=== PATIENT | female | born 1955 | race Caucasian/White ===

== ENCOUNTER 2022-07-13 15:56 | Emergency (ER) | payer MEDICARE, MEDICAID ==
[~2022-07-13] VITALS: Ht 162.6 cm; Wt 77.0 kg
[2022-07-13 16:05] VITALS: BP 164/96
[2022-07-13] MEDS ORDERED: IBUP-2029 MT (19:45)
[2022-07-13] MEDS ORDERED: METH-653 MT (19:45)
== END 2022-07-13 21:15 | disposition home or self-care (01) ==
LOC: ER 16:03
DX: M54.9 Dorsalgia, unspecified (principal); I10 Essential (primary) hypertension; V49.9XXA Car occupant (driver) (passenger) injured in unspecified traffic accident, initial encounter; Y93.89 Activity, other specified; Y92.89 Other specified places as the place of occurrence of the external cause; Y99.8 Other external cause status
CPT/HCPCS: 71045; 93005; 99283

== ENCOUNTER 2022-10-17 02:31 | Emergency (ER) | payer MEDICARE, MEDICAID ==
[~2022-10-17] VITALS: Ht 160 cm; Wt 73.0 kg
[~2022-10-17 02:31] MED LIST: IBUP-2029 MT; METH-653 MT
[2022-10-17] MEDS ORDERED: MORPHINE SULFATE 4 MG/ML CPJ (NOT FOR IM USE) IV STA (03:23)
[2022-10-17] MEDS ORDERED: ONDANSETRON HCL 4MG/2ML INJ IV STA (03:23)
[2022-10-17] MEDS ORDERED: FAMOTIDINE 20MG/2ML VIAL IV STA (03:23)
[2022-10-17 04:30] LABS: BASOPHILS % 0.3 % (0.0-2.0); EOSINOPHILS % 2.6 % (0.0-5.0); HEMATOCRIT. 30.8 % (36.0-48.0); LYMPHOCYTES % 11.9 % (20.0-50.0); MEAN CORPUSCULAR HEMOGLOBIN 33.7 pg (28.0-32.0); MEAN CORPUSCULAR VOLUME 94.1 fL (81.0-99.0); MEAN PLATELET VOLUME 8.8 fl (7.4-10.4); MONOCYTES % 7.4 % (2.0-8.0); NEUTROPHILS % 77.8 % (40.0-76.0); PLATELET 154 x1000/uL (130-400); RED BLOOD CELL COUNT 3.27 mill/uL (4.2-5.4)
[2022-10-17] MEDS ORDERED: MAGNESIUM/ALUMINUM HYDROXIDE/SIMETHICONE 30ML UDC PO STA (04:33)
[2022-10-17] MEDS ORDERED: VISCOUS LIDOCAINE 2% 15 ML UDC PO STA (04:33)
[2022-10-17 04:39] LABS: CHLORIDE 110 mEq/L (98-107)
[2022-10-17 04:45] LABS: CLARITY URINE CLEAR (CLEAR); COLOR URINE YELLOW (YELLOW); KETONES URINE NEGATIVE (NEGATIVE); LEUKOCYTE ESTERASE URINE NEGATIVE (NEGATIVE); NITRITE URINE NEGATIVE (NEGATIVE); OCCULT BLOOD URINE NEGATIVE (NEGATIVE); PROTEIN URINE NEGATIVE (NEGATIVE); SPECIFIC GRAVITY URINE 1.008 (1.005-1.030); UROBILINOGEN URINE 0.2 E.U./dL (0.2-1.0)
[2022-10-17] MEDS ORDERED: ONDA4TAB50 MT (05:02)
[2022-10-17] MEDS ORDERED: PROT40 MT (05:02)
[2022-10-17 06:00] VITALS: BP 143/74
== END 2022-10-17 06:37 | disposition home or self-care (01) ==
LOC: ER 02:31
DX: R10.13 Epigastric pain (principal); R11.2 Nausea with vomiting, unspecified; R19.7 Diarrhea, unspecified; R07.9 Chest pain, unspecified; F41.9 Anxiety disorder, unspecified; J45.909 Unspecified asthma, uncomplicated; I10 Essential (primary) hypertension
CPT/HCPCS: 36415; 71045; 76705; 80053; 81003; 83605; 83690; 84484; 85025; 96374; 96375; 99285; J2270; J2405; J3490

== ENCOUNTER 2025-04-01 14:25 | Emergency (ER) | payer MEDICARE, OTHER ==
[~2025-04-01] VITALS: Ht 160 cm; Wt 77.0 kg
[~2025-04-01 14:25] MED LIST changes: +AMLO5TAB88 PO; +GABA-290 PO; +IBUP-1455 MT; -IBUP-2029 MT; +ONDA4TAB50 MT; +PROT40 MT
[2025-04-01 14:26] VITALS: O2SAT 96
[2025-04-01 15:05] LABS: BASOPHILS % 0.5 % (0.0-2.0); EOSINOPHILS % 1.3 % (0.0-5.0); HEMATOCRIT. 39.1 % (36.0-48.0); HEMOGLOBIN. 13.3 g/dL (12.0-16.0); LYMPHOCYTES % 24.1 % (20.0-50.0); MEAN PLATELET VOLUME 8.6 fl (7.4-10.4); MONOCYTES % 4.6 % (2.0-8.0); NEUTROPHILS % 69.5 % (40.0-76.0); PLATELET 186 x1000/uL (130-400); RED BLOOD CELL COUNT 4.13 mill/uL (4.2-5.4); RED CELL DISTRIBUTION WIDTH 13.5 % (11.6-14.6)
[2025-04-01 15:16] LABS: INR 1.0
[2025-04-01 15:20] LABS: UREA NITROGEN BLOOD 14 mg/dL (9-23)
[2025-04-01 15:21] LABS: TROPONIN I HIGH SENSITIVITY < 4 ng/L (3.0-34)
[2025-04-01 15:22] LABS: CREATININE 1.2 mg/dL (0.6-1.0)
[2025-04-01 15:24] LABS: ASPARTATE AMINOTRANSFERASE 26 IU/L (<34); BILIRUBIN DIRECT 0.1 mg/dL (<=3.0)
[2025-04-01 15:25] LABS: BILIRUBIN TOTAL 0.5 mg/dL (0.1-1.0); PROTEIN TOTAL 7.3 g/dL (6.0-8.3)
[2025-04-01] MEDS: ONDANSETRON HCL 4MG/2ML INJ IV ONE (15:32)
[2025-04-01] MEDS: SODIUM CHLORIDE 0.9% 1,000 ML IV ONE (15:32)
[2025-04-01] MEDS: ACETAMINOPHEN 325MG TABLET PO ONE (15:32)
[2025-04-01] MEDS: KETOROLAC 30MG/ML VIAL IV ONE (17:08)
[2025-04-01 17:43] LABS: CLARITY URINE CLEAR (CLEAR); COLOR URINE YELLOW (YELLOW); GLUCOSE URINE NEGATIVE (NEGATIVE); KETONES URINE NEGATIVE (NEGATIVE); LEUKOCYTE ESTERASE URINE TRACE (NEGATIVE); NITRITE URINE NEGATIVE (NEGATIVE); OCCULT BLOOD URINE NEGATIVE (NEGATIVE); PH URINE 7.5 (4.5-8.0); PROTEIN URINE NEGATIVE (NEGATIVE); SPECIFIC GRAVITY URINE 1.007 (1.005-1.030); UROBILINOGEN URINE 0.2 E.U./dL (0.2-1.0)
[2025-04-01 17:57] LABS: BACTERIA URINE RARE; RBC URINE 0-2 /hpf (0-2); SQUAMOUS EPITHELIAL CELL URINE FEW /lpf (RARE/1+)
[2025-04-01 18:08] LABS: *AMPHETAMINES SCREEN URINE NEGATIVE (NEGATIVE); *BARBITURATES SCREEN URINE NEGATIVE (NEGATIVE); *BENZODIAZEPINES SCREEN URINE NEGATIVE (NEGATIVE); *COCAINE SCREEN URINE NEGATIVE (NEGATIVE)
[2025-04-01 18:09] LABS: CANNABINOID URINE SCREEN NEGATIVE (NEGATIVE); ECSTASY MDMA SCREEN URINE NEGATIVE (NEGATIVE); METHADONE URINE SCREEN NEGATIVE (NEGATIVE); OPIATES URINE SCREEN NEGATIVE (NEGATIVE); PHENCYCLIDINE URINE SCREEN NEGATIVE (NEGATIVE)
[2025-04-01 18:25] VITALS: BP 137/73; PULSE 88; RESP 22; TEMP 36.9; O2SAT 97
== END 2025-04-01 18:29 | disposition home or self-care (01) ==
LOC: ER 14:25 → CMPBEDREQ 04-02 08:30
DX: F41.9 Anxiety disorder, unspecified (principal); R51.9 Headache, unspecified; R07.89 Other chest pain; R06.02 Shortness of breath; E78.00 Pure hypercholesterolemia, unspecified; I10 Essential (primary) hypertension; J45.909 Unspecified asthma, uncomplicated; Z79.899 Other long term (current) drug therapy; Z87.440 Personal history of urinary (tract) infections
CPT/HCPCS: 80076; 80305; 80048; 81003; 80320; 83880; 83690; 83735; 85025; 85610; 85730; 84484; 36415; 71045; 70450; 93005; 96374; 96375; 99285; J1885; J2405; J7030; G0480

== ENCOUNTER 2025-04-29 11:19 | Emergency (ER) | payer MEDICARE, OTHER ==
[~2025-04-29] VITALS: Ht 160 cm; Wt 65.0 kg
[2025-04-29 11:26] VITALS: O2SAT 98
[2025-04-29 12:18] LABS: BASOPHILS % 1.0 % (0.0-2.0); EOSINOPHILS % 1.0 % (0.0-5.0); HEMATOCRIT. 38.3 % (36.0-48.0); HEMOGLOBIN. 13.2 g/dL (12.0-16.0); LYMPHOCYTES % 30.1 % (20.0-50.0); MEAN PLATELET VOLUME 8.2 fl (7.4-10.4); MONOCYTES % 5.6 % (2.0-8.0); NEUTROPHILS % 62.3 % (40.0-76.0); PLATELET 192 x1000/uL (130-400); RED BLOOD CELL COUNT 4.09 mill/uL (4.2-5.4); RED CELL DISTRIBUTION WIDTH 13.2 % (11.6-14.6)
[2025-04-29 12:37] LABS: CREATININE 1.1 mg/dL (0.6-1.0)
[2025-04-29 12:38] LABS: TROPONIN I HIGH SENSITIVITY < 4 ng/L (3.0-34); UREA NITROGEN BLOOD 15.0 mg/dL (9-23)
[2025-04-29 12:49] LABS: INR 1.0
[2025-04-29] MEDS: DIPHENHYDRAMINE 25MG CAPSULE PO ONE (13:46)
[2025-04-29] MEDS: METOCLOPRAMIDE HCL 10MG TABLET PO ONE (13:46)
[2025-04-29] MEDS: KETOROLAC 30MG/ML VIAL IM ONE (13:46)
[2025-04-29 14:03] VITALS: BP 118/86; PULSE 85; RESP 16; TEMP 36.6; O2SAT 98
== END 2025-04-29 14:23 | disposition home or self-care (01) ==
LOC: ER 11:19
DX: R07.89 Other chest pain (principal); G43.909 Migraine, unspecified, not intractable, without status migrainosus; F41.9 Anxiety disorder, unspecified; I10 Essential (primary) hypertension; E78.00 Pure hypercholesterolemia, unspecified; J45.909 Unspecified asthma, uncomplicated; Z79.899 Other long term (current) drug therapy; Z90.710 Acquired absence of both cervix and uterus; Z98.890 Other specified postprocedural states
CPT/HCPCS: 99285; 70450; 71045; 80048; 83880; 85025; 85610; 85730; 84484; 36415; 93005; 96372; J1885; Q0163; J8597